=== PATIENT | male | born 1945 | race Caucasian/White ===

== ENCOUNTER → 2017-03-28 | Day surgery (SDC) | payer OTHER ==
[~2017-03-28] MED LIST: BUPIVACAINE HCL PF 0.5% 30 ML VIAL ONE; CLEO300C2 PO; LACTATED RINGER'S 1000 ML INJ 1,000 ML ONE; SULF1TAB47 PO; TYLE3 PO; ceFAZolin INJ 1,000 MG VIAL ONE
== END | disposition home or self-care (01) ==
LOC: ESDC 13:38
PROVIDERS: ATTEND Orthopaedic Surgery Sports Medicine
DX: G56.01 Carpal tunnel syndrome, right upper limb (principal); Z53.09 Procedure and treatment not carried out because of other contraindication; S60.424A Blister (nonthermal) of right ring finger, initial encounter; E11.9 Type 2 diabetes mellitus without complications
CPT/HCPCS: 82948; G0463; 99211; J0690; J7120